=== PATIENT | male | born 1995 | race Caucasian/White ===

== ENCOUNTER 2016-09-27 16:13 | Emergency (ER) | payer BC ==
[2016-09-27 16:30] VITALS: BP 133/69
[2016-09-27] MEDS ORDERED: Cyclobenzaprine 10 MG Tab PO ONE ×2 (16:50→17:33)
[2016-09-27] MEDS ORDERED: Ketorolac 30 MG/ML SDV ONE (16:50)
[2016-09-27] MEDS ORDERED: Ketorolac 30 MG/ML SDV IM ONE (17:00)
--- NOTE | 2016-09-27 17:01 | EDM.PDOC ---
Addendum entered and electronically signed by Madan Doss PA-C 09/27/16 17: 47: X-rays cervical spine 2 views Impression: No fracture identified. Minimal anterior positioning of C4 on C5. X-rays thoracic spine 2 views Impression: No fracture or subluxation. No acute plain film abnormality Original Note: ED UPPER BACK/NECK PAIN/INJURY - General Chief Complaint: Back Pain or Injury Stated Complaint: UPPER BACK PAIN Time Seen by Provider: 09/27/16 16:40 Source of Information: Reports: Patient History Limitations: Reports: No limitations - History of Present Illness INITIAL COMMENTS - FREE TEXT/NARRATIVE: 21-year-old male presents to the emergency room with complaints of upper back pain, left scapular pain. He reports no injury or trauma. Symptoms are present when he woke up this morning approximately 8:00. He denies any pain radiating down his arms no numbness or tingling. He denies pain in his neck but has increased pain and discomfort in his upper back with any neck range of motion. He has not taken anything for it. 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 [No Known Home Meds] 09/27/16 [History] Past Medical History HEENT History: Reports: Impaired vision Respiratory History: Reports: Bronchitis, recurrent Gastrointestinal History: Reports: None Musculoskeletal History: Reports: Fracture Neurological History: Reports: None Psychiatric History: Reports: ADD, Anxiety, OCD Endocrine/Metabolic History: Reports: None Hematologic History: Reports: None Immunologic History: Reports: None Oncologic (Cancer) History: Reports: None Dermatologic History: Reports: Other (see below) Other Dermatologic History: dermatitis - Infectious Disease History Infectious Disease History: Reports: Influenza, Mononucleosis - Past Surgical History GI Surgical History: Reports: None Endocrine Surgical History: Reports: None Neurological Surgical History: Reports: None Musculoskeletal Surgical History: Reports: None Dermatological Surgical History: Reports: None Social & Family History - Tobacco Use Smoking Status *Q: Current Every Day Smoker Years of Tobacco use: 6 Packs/Tins Daily: 1 Used Tobacco, but Quit: No Second Hand Smoke Exposure: Yes - Caffeine Use Caffeine Use: Reports: Coffee, Energy drinks, Soda, Tea - Recreational Drug Use Recreational Drug Use: No ED ROS GENERAL - Review of Systems Review Of Systems: ROS reveals no pertinent complaints other than HPI. ED EXAM, UPPER BACK/NECK PAIN - Physical Exam Exam: See Below Exam Limited By: No limitations General Appearance: alert, no apparent distress, thin Head Exam: atraumatic, normocephalic Neck Exam: non-tender, full range of motion, normal alignment, normal inspection Nexus Criteria: No: posterior, midline cervical tenderness, evidence of intoxication, altered level of consciousness, focal neurological deficit, painful distracting injuries Cardiovascular/Respiratory: regular rate, rhythm Back Exam: normal inspection, paraspinal tenderness (left upper back paraspinals , rhomboids). 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 No: sensory deficit, depressed affect DTR: 2+: bicep (R), bicep (L), tricep (R), tricep (L) Psychiatric: normal affect, normal mood Skin Exam: Normal color, Warm/dry Lymphatic: no adenopathy (cervical) Course - Vital Signs Last Recorded V/S: Last Vital Signs Temp 99.0 F 09/27/16 16:25 Pulse 74 09/27/16 16:25 Resp 22 H 09/27/16 16:25 BP 133/69 09/27/16 16:25 Pulse Ox 96 09/27/16 16:25 - Orders/Labs/Meds Orders: Active Orders 24 hr Category Date Time Status Cervical Spine 2V or 3V [CR] Stat Exams 09/27/16 16:51 Ordered Thoracic Spine 2V [CR] Stat Exams 09/27/16 16:52 Ordered Meds: Medications Discontinued Medications Generic Name Dose Route Start Last Admin Trade Name Sabas PRN Reason Stop Dose Admin Cyclobenzaprine HCl 10 mg 09/27/16 16:50 09/27/16 17:06 Flexeril PO 09/27/16 16:51 10 mg ONETIME ONE Administration Ketorolac Tromethamine 30 mg 09/27/16 16:50 Toradol .ROUTE 09/27/16 16:51 .STK-MED ONE Ketorolac Tromethamine 30 mg 09/27/16 17:00 09/27/16 17:05 Toradol IM 09/27/16 17:01 30 mg ONETIME ONE Administration Tramadol HCl 100 mg 09/27/16 17:30 Ultram PO 09/27/16 17:31 ONETIME ONE Departure - Departure Time of Disposition: 17:36 Disposition: Home, Self-Care 01 Condition: good Clinical Impression: Acute upper back pain, Muscle weakness of left arm Instructions: Muscle Strain, [id number], Back Pain, Adult, [id number] Referrals: PCP,None [Primary Care Provider] - Forms: ED Department Discharge - My Orders Last 24 Hours: My Active Orders 09/27/16 16:51 Cervical Spine 2V or 3V [CR] Stat 09/27/16 16:52 Thoracic Spine 2V [CR] Stat - Assessment/Plan Last 24 Hours: My Active Orders 09/27/16 16:51 Cervical Spine 2V or 3V [CR] Stat 09/27/16 16:52 Thoracic Spine 2V [CR] Stat Assessment:: Acute upper back pain, myofascial Left arm weakness, triceps Plan: 1. Toradol 10 mg one by mouth every 8 hours when necessary for acute pain. 2. Flexeril 10 mg one by mouth every 8 hours for muscle spasm. 3. Ultram 50 mg one by mouth q. 6 hours when necessary for pain. 4. Off work today from [employer]. 5. Followup with primary care if symptoms do not improve.
[2016-09-27] MEDS ORDERED: traMADol 50 MG Tab PO ONE ×2 (17:30→17:33)
[2016-09-27] MEDS ORDERED: Ketorolac 10 MG Tab PO ONE (17:33)
== END 2016-09-27 17:55 | disposition home or self-care (01) ==
LOC: KA.ED 16:13
DX: M54.6 Pain in thoracic spine (principal); M62.81 Muscle weakness (generalized); F41.9 Anxiety disorder, unspecified; F17.210 Nicotine dependence, cigarettes, uncomplicated; Z88.0 Allergy status to penicillin
CPT/HCPCS: 72040; 72070; 96372; 99283; A9270; J1885

== ENCOUNTER 2017-03-08 23:18 | Emergency (ER) | payer BC ==
[2017-03-08 23:36] VITALS: BP 106/52
--- NOTE | 2017-03-08 23:46 | EDM.PDOC ---
ED HPI GENERAL MEDICAL PROBLEM - General Chief Complaint: General Stated Complaint: feels sick Time Seen by Provider: 03/08/17 23:35 Source of Information: Reports: Patient History Limitations: Reports: No Limitations - History of Present Illness INITIAL COMMENTS - FREE TEXT/NARRATIVE: 22 YO WM presents to ER with nonproductive cough, congestion, body aches and nausea x 2 days. Pt reports subjective fevers and sick contacts at home (mom) who is also being treated tonight in ER. Pt denies any shortness of breath or chest pain. Pt requesting a work note for his illness tonight. Onset Date: 03/07/17 Duration: Day(s): (2) Location: Reports: Generalized Quality: Reports: Ache Severity: Mild Improves with: Reports: None Worsens with: Reports: None Associated Symptoms: Reports: Fever/Chills, Malaise, Nausea/Vomiting. Denies: Chest Pain, Shortness of Breath Generalized Pain Score (Numeric/FACES): 6 - Related Data Allergies Allergy/AdvReac Type Severity Reaction Status Date / Time Penicillins Allergy Cannot Verified 03/08/17 23:36 Remember shellfish derived Allergy Anaphylactic Verified 03/08/17 23:36 Shock Home Meds: Home Meds D-Methorphan/PE/Acetaminophen [Tylenol Cold Multi-Symp Caplet] 1 tab PO Q6HR PRN 03/08/17 [History] Cetirizine [ZyrTEC] 10 mg PO DAILY #30 tablet 03/09/17 [Rx] Ibuprofen [Motrin] 600 mg PO Q6H #20 tablet 03/09/17 [Rx] Ondansetron [Zofran ODT] 4 mg PO Q6H PRN #10 tab.dis 03/09/17 [Rx] Past Medical History HEENT History: Reports: Impaired Vision Respiratory History: Reports: Bronchitis, Recurrent Gastrointestinal History: Reports: None Musculoskeletal History: Reports: Fracture Neurological History: Reports: None Psychiatric History: Reports: ADD, Anxiety, OCD Endocrine/Metabolic History: Reports: None Hematologic History: Reports: None Immunologic History: Reports: None Oncologic (Cancer) History: Reports: None Dermatologic History: Reports: Other (See Below) Other Dermatologic History: dermatitis - Infectious Disease History Infectious Disease History: Reports: Influenza, Mononucleosis - Past Surgical History GI Surgical History: Reports: None Endocrine Surgical History: Reports: None Neurological Surgical History: Reports: None Musculoskeletal Surgical History: Reports: None Dermatological Surgical History: Reports: None Social & Family History - Tobacco Use Smoking Status *Q: Current Every Day Smoker Years of Tobacco use: 6 Packs/Tins Daily: 1 Used Tobacco, but Quit: No Second Hand Smoke Exposure: Yes - Caffeine Use Caffeine Use: Reports: Coffee, Energy Drinks, Soda, Tea - Recreational Drug Use Recreational Drug Use: No ED ROS GENERAL - Review of Systems Review Of Systems: See Below Constitutional: Reports: Fever, Chills, Malaise HEENT: Reports: Rhinitis Respiratory: Reports: No Symptoms Cardiovascular: Reports: No Symptoms Endocrine: Reports: No Symptoms GI/Abdominal: Reports: No Symptoms : Reports: No Symptoms Musculoskeletal: Reports: No Symptoms Skin: Reports: No Symptoms Neurological: Reports: No Symptoms Psychiatric: Reports: No Symptoms Hematologic/Lymphatic: Reports: No Symptoms Immunologic: Reports: No Symptoms ED EXAM, GENERAL - Physical Exam Exam: See Below Exam Limited By: No Limitations General Appearance: Alert, WD/WN, No Apparent Distress Ears: Normal External Exam, Normal Canal, Hearing Grossly Normal, Normal TMs Ear Exam: Bilateral Ear: Auricle Normal, Canal Normal, TM normal Nose: Normal Inspection, Normal Mucosa, No Blood Throat/Mouth: Normal Inspection, Normal Lips, Normal Teeth, Normal Gums, Normal Oropharynx, Normal Voice, No Airway Compromise Head: Atraumatic, Normocephalic Neck: Normal Inspection, Supple, Non-Tender, Full Range of Motion Respiratory/Chest: No Respiratory Distress, Lungs Clear, Normal Breath Sounds, No Accessory Muscle Use, Chest Non-Tender Cardiovascular: Normal Peripheral Pulses, Regular Rate, Rhythm, No Edema, No Gallop, No JVD, No Murmur, No Rub GI/Abdominal: Normal Bowel Sounds, Soft, Non-Tender, No Organomegaly, No Distention, No Abnormal Bruit, No Mass Back Exam: Normal Inspection, Full Range of Motion, NT Extremities: Normal Inspection, Normal Range of Motion, Non-Tender, Normal Capillary Refill, No Pedal Edema Neurological: Alert, Oriented, CN II-XII Intact, Normal Cognition, Normal Gait, Normal Reflexes, No Motor/Sensory Deficits Psychiatric: Normal Affect, Normal Mood Skin Exam: Warm, Dry, Intact, Normal Color, No Rash Lymphatic: No Adenopathy Course - Vital Signs Last Recorded V/S: Last Vital Signs Temp 36.8 C 03/08/17 23:32 Pulse 80 03/08/17 23:32 Resp 16 03/08/17 23:32 BP 106/52 L 03/08/17 23:32 Pulse Ox 95 03/08/17 23:32 Departure - Departure Time of Disposition: 00:20 Disposition: Home, Self-Care 01 Condition: Good Clinical Impression: Viral upper respiratory infection - Discharge Information Prescriptions: Cetirizine [ZyrTEC] 10 mg PO DAILY #30 tablet Ibuprofen [Motrin] 600 mg PO Q6H #20 tablet Ondansetron [Zofran ODT] 4 mg PO Q6H PRN #10 tab.dis PRN Reason: Vomiting Instructions: Upper Respiratory Infection, Adult, [id number] Referrals: Osman Farmer MD [Physician] - Forms: ED Department Discharge - Assessment/Plan Assessment:: 1. viral URI Plan: 1. discharge home 2. motrin/tylenol for fever/body aches 3. zyrtec 10mg PO QD 4. benadryl 50mg PO Q6 PRN 5. zofran ODT 4mg SL Q6 PRN 5. follow up at [facility] for recheck in 2 days 6. return to ER for worsening symptoms
[2017-03-09] MEDS ORDERED: Ondansetron 4 MG Tab.DIS ONE (00:16)
[2017-03-09] MEDS ORDERED: Ondansetron 4 MG Tab.DIS PO SCH (00:16)
== END 2017-03-09 00:30 | disposition home or self-care (01) ==
LOC: KA.ED 23:18
DX: J06.9 Acute upper respiratory infection, unspecified (principal); F17.210 Nicotine dependence, cigarettes, uncomplicated; Z88.0 Allergy status to penicillin; Z91.013 Allergy to seafood
CPT/HCPCS: 99282; A9270

== ENCOUNTER 2017-03-23 08:12 | Inpatient (IN) | payer BC ==
[2017-03-23] MEDS ORDERED: HYDROmorphone 1 MG/ML Syringe IVPUSH ONE ×2 (08:52→09:58)
[2017-03-23] MEDS ORDERED: Ondansetron 4 MG/2 ML SDV IVPUSH ONE (08:52)
--- NOTE | 2017-03-23 08:59 | EDM.PDOC ---
ED HPI GENERAL MEDICAL PROBLEM - General Chief Complaint: Abdominal Pain Stated Complaint: abd pain Time Seen by Provider: 03/23/17 08:51 Source of Information: Reports: Patient History Limitations: Reports: No Limitations - History of Present Illness INITIAL COMMENTS - FREE TEXT/NARRATIVE: Patient is a 22-year-old male who presents to the ER this morning for complaint of abdominal pain 1 day. States he has felt feverish and pain is progressively worsening. Has had diarrhea but denies nausea and vomiting, testicular pain, flank pain, or dysuria.. No family members with similar symptoms. Patient has no history of abdominal surgery or out of country travel. Onset: Gradual Onset Date: 03/22/17 Duration: Day(s): Location: Reports: Abdomen Quality: Reports: Ache Severity: Moderate Improves with: Reports: None Worsens with: Reports: None Associated Symptoms: Reports: Fever/Chills, Other (diarrhea). Denies: Nausea/ Vomiting Treatments MANAGER ICU: Reports: NSAIDS Abdomen Pain Score (Numeric/FACES): 7 - Related Data Allergies Allergy/AdvReac Type Severity Reaction Status Date / Time Penicillins Allergy Cannot Verified 03/23/17 08:28 Remember shellfish derived Allergy Anaphylactic Verified 03/23/17 08:28 Shock Home Meds: Home Meds D-Methorphan/PE/Acetaminophen [Tylenol Cold Multi-Symp Caplet] 1 tab PO Q6HR PRN 03/08/17 [History] Ibuprofen [Motrin] 600 mg PO Q6H #20 tablet 03/09/17 [Rx] Past Medical History HEENT History: Reports: Impaired Vision Respiratory History: Reports: Bronchitis, Recurrent Gastrointestinal History: Reports: None Musculoskeletal History: Reports: Fracture Neurological History: Reports: None Psychiatric History: Reports: ADD, Anxiety, OCD Endocrine/Metabolic History: Reports: None Hematologic History: Reports: None Immunologic History: Reports: None Oncologic (Cancer) History: Reports: None Dermatologic History: Reports: Other (See Below) Other Dermatologic History: dermatitis - Infectious Disease History Infectious Disease History: Reports: Influenza, Mononucleosis - Past Surgical History GI Surgical History: Reports: None Endocrine Surgical History: Reports: None Neurological Surgical History: Reports: None Musculoskeletal Surgical History: Reports: None Dermatological Surgical History: Reports: None Social & Family History - Tobacco Use Smoking Status *Q: Current Some Day Smoker Years of Tobacco use: 5 Packs/Tins Daily: 0.5 Used Tobacco, but Quit: No Second Hand Smoke Exposure: Yes - Caffeine Use Caffeine Use: Reports: Coffee, Energy Drinks, Soda - Alcohol Use Days Per Week of Alcohol Use: 1 Number of Drinks Per Day: 4 Total Drinks Per Week: 4 - Recreational Drug Use Recreational Drug Use: No ED ROS GENERAL - Review of Systems Review Of Systems: ROS reveals no pertinent complaints other than HPI. Constitutional: Reports: Fever, Chills, Decreased Appetite HEENT: Reports: No Symptoms Respiratory: Reports: No Symptoms Cardiovascular: Reports: No Symptoms Endocrine: Reports: No Symptoms GI/Abdominal: Reports: Abdominal Pain, Diarrhea. Denies: Black Stool, Bloody Stool, Constipation, Nausea, Vomiting : Reports: No Symptoms Musculoskeletal: Reports: No Symptoms Skin: Reports: No Symptoms Neurological: Reports: No Symptoms Psychiatric: Reports: No Symptoms Hematologic/Lymphatic: Reports: No Symptoms Immunologic: Reports: No Symptoms ED EXAM, GI/ABD - Physical Exam Exam: See Below Exam Limited By: No Limitations General Appearance: Alert, WD/WN, Mild Distress Nose: Normal Inspection, Normal Mucosa, No Blood Throat/Mouth: Normal Inspection, Normal Oropharynx, No Airway Compromise Head: Atraumatic, Normocephalic Neck: Normal Inspection, Supple Respiratory/Chest: No Respiratory Distress, Lungs Clear, Normal Breath Sounds, No Accessory Muscle Use, Chest Non-Tender Cardiovascular: Regular Rate, Rhythm, No Murmur GI/Abdominal Exam: Soft, No Organomegaly, No Distention, No Abnormal Bruit, Tender (RLQ) (Male) Exam: No Hernia, Normal Inspection Back Exam: Normal Inspection. No: CVA Tenderness (L), CVA Tenderness (R) Extremities: Normal Inspection Neurological: Alert, Oriented, Normal Cognition Psychiatric: Normal Affect, Normal Mood Skin Exam: Warm, Dry, Intact, Normal Color, No Rash Lymphatic: No Adenopathy Course - Vital Signs Last Recorded V/S: Last Vital Signs Temp 100.3 F 03/23/17 08:45 Pulse 76 03/23/17 08:24 Resp 16 03/23/17 08:24 BP 131/66 03/23/17 08:24 Pulse Ox 100 03/23/17 08:24 - Orders/Labs/Meds Orders: Active Orders 24 hr Category Date Time Status Abdomen Pelvis w Cont [CT] Stat Exams 03/23/17 08:52 Ordered CULTURE BLOOD [BC] Stat Lab 03/23/17 10:52 Ordered CULTURE BLOOD [BC] Stat Lab 03/23/17 10:52 Ordered Sodium Chloride 0.9% [Normal Saline] Med 03/23/17 09:15 Active 50 ml FLUSH ASDIRECTED Blood Culture x2 Reflex Set [OM.PC] Stat Oth 03/23/17 10:51 Ordered Medication Orders Sodium Chloride (Normal Saline) 50 ml FLUSH ASDIRECTED KRYS Last Admin: 03/23/17 09:55 Dose: 50 ml Labs: Laboratory Tests 03/23/17 03/23/17 03/23/17 Range/Units 08:35 08:40 08:40 WBC 16.7 H (5.0-10.0) 10^3/uL RBC 4.64 (4.50-6.00) 10^6/uL Hgb 13.8 (13.0-17.0) g/dL Hct 42.7 (40.0-52.0) % MCV 91.8 (82.0-92.0) fL MCH 29.7 (27.0-31.0) pg MCHC 32.4 (32.0-36.0) g/dL RDW 12.0 (11.5-14.5) % Plt Count 239 (150-300) 10^3/uL MPV 8.1 (7.4-10.4) fL Neut % (Auto) 81.9 H (50.0-70.0) % Lymph % (Auto) 9.9 L (20.0-40.0) % [place] % (Auto) 7.1 (2.0-8.0) % Eos % (Auto) 1.0 (1.0-3.0) % Baso % (Auto) 0.1 (0.0-1.0) % Neut # (Auto) 13.6 H (2.5-7.0) 10^3/uL Lymph # (Auto) 1.7 (1.0-4.0) 10^3/uL [place] # (Auto) 1.2 H (0.1-0.8) 10^3/uL Eos # (Auto) 0.2 (0.1-0.3) 10^3/uL Baso # (Auto) 0.0 (0.0-0.1) 10^3/uL Sodium 140 (136-145) mmol/L Potassium 3.4 (3.3-5.3) mmol/L Chloride 104 (98-115) mmol/L Carbon Dioxide 26.7 (21.0-32.0) mmol/L BUN 15 (6-25) mg/dL Creatinine 0.64 (0.51-1.17) mg/dL Est Cr Clr Drug Dosing 171.28 mL/min Estimated GFR (MDRD) > 60 mL/min Glucose 95 (70-110) mg/dL Calcium 8.7 (8.7-10.3) mg/dL Total Bilirubin 0.2 (0.2-1.0) mg/dL AST 23 (15-37) U/L ALT 25 (12-78) U/L Alkaline Phosphatase 73 (46-116) IU/L Total Protein 7.3 (6.4-8.2) g/dL Albumin 3.60 (3.00-4.80) g/dL Lipase 118 (73-393) U/L Specimen Type Urincc Urine Color Yellow (YELLOW) Urine Appearance Clear (CLEAR) Urine pH 8.0 (5.0-9.0) Ur Specific [place] 1.015 (1.005-1.030) Urine Protein Negative (NEGATIVE) mg/dL Urine Glucose (UA) Negative (NEGATIVE) mg/dL Urine Ketones Negative (NEGATIVE) mg/dL Urine Occult Blood Negative (NEGATIVE) Urine Nitrite Negative (NEGATIVE) Urine Bilirubin Negative (NEGATIVE) Urine Urobilinogen 0.2 (0.2-1.0) E.U./dL Ur Leukocyte Esterase Negative (NEGATIVE) Urine RBC 5-10 H /HPF Urine WBC 0-5 /HPF Ur Epithelial Cells Rare /LPF Urine Bacteria Rare (NONE TO FEW) /HPF Meds: Medications Generic Name Dose Route Start Last Admin Trade Name Freq PRN Reason Stop Dose Admin Sodium Chloride 50 ml 03/23/17 09:15 03/23/17 09:55 Normal Saline FLUSH 50 ml ASDIRECTED KRYS Administration Discontinued Medications Generic Name Dose Route Start Last Admin Trade Name Freq PRN Reason Stop Dose Admin Diphenhydramine HCl 25 mg 03/23/17 09:58 03/23/17 10:11 Benadryl IVPUSH 03/23/17 09:59 25 mg ONETIME ONE Administration Hydromorphone HCl 0.5 mg 03/23/17 08:52 03/23/17 09:09 Dilaudid IVPUSH 03/23/17 08:53 0.5 mg ONETIME ONE Administration Hydromorphone HCl 0.5 mg 03/23/17 09:58 03/23/17 10:10 Dilaudid IVPUSH 03/23/17 09:59 0.5 mg ONETIME ONE Administration Iopamidol 75 ml 03/23/17 09:10 03/23/17 09:55 Isovue-300 (61%) IV 03/23/17 09:11 75 ml ONETIME ONE Administration Ondansetron HCl 4 mg 03/23/17 08:52 03/23/17 09:08 Zofran IVPUSH 03/23/17 08:53 4 mg ONETIME ONE Administration - Radiology Interpretation Free Text/Narrative:: Discussed case with radiologist and was advised. CT showed colitis with inflammation around appendix, but does not feel acute appendicitis at this time. - Re-Assessments/Exams Free Text/Narrative Re-Assessment/Exam: 03/23/17 11:14 Patient afebrile, nontoxic appearing. Vital signs stable. Pain controlled. Discussed case with Dr. Perez. Advised to admit inpatient and he will follow. Departure - Departure Time of Disposition: 11:18 Disposition: Admitted As Inpatient 64 Condition: Fair Clinical Impression: Colitis Abdominal pain Qualifiers: Abdominal location: right lower quadrant Qualified Code(s): R10.31 - Right lower quadrant pain - Discharge Information Referrals: PCP,None [Primary Care Provider] - Forms: ED Department Discharge - My Orders Last 24 Hours: My Active Orders 03/23/17 08:52 Abdomen Pelvis w Cont [CT] Stat 03/23/17 09:15 Sodium Chloride 0.9% [Normal Saline] 50 ml FLUSH ASDIRECTED 03/23/17 10:51 Blood Culture x2 Reflex Set [OM.PC] Stat 03/23/17 10:52 CULTURE BLOOD [BC] Stat CULTURE BLOOD [BC] Stat - Assessment/Plan Last 24 Hours: My Active Orders 03/23/17 08:52 Abdomen Pelvis w Cont [CT] Stat 03/23/17 09:15 Sodium Chloride 0.9% [Normal Saline] 50 ml FLUSH ASDIRECTED 03/23/17 10:51 Blood Culture x2 Reflex Set [OM.PC] Stat 03/23/17 10:52 CULTURE BLOOD [BC] Stat CULTURE BLOOD [BC] Stat Assessment:: COLITIS Plan: ADMIT INPATIENT TO DR PEREZ
[2017-03-23] MEDS ORDERED: Iopamidol 612 MG/ML 75 ML Bottle IV ONE (09:10)
[2017-03-23 09:12] LABS: CHLORIDE,CL 104 mmol/L (98-115); SODIUM,NA 140 mmol/L (136-145)
[2017-03-23] MEDS ORDERED: Sodium Chloride 0.9% 50 ML SDV FLUSH SCH (09:15)
[2017-03-23] MEDS ORDERED: diphenhydrAMINE 50 MG/ML SDV IVPUSH ONE (09:58)
[2017-03-23] MEDS ORDERED: metroNIDAZOLE/Normal Saline 500 MG in Premix Bag 1 BAG IV ONE (11:15)
[2017-03-23] MEDS ORDERED: Ciprofloxacin in D5W 400 MG in Premix Bag 1 BAG IV ONE ×2 (11:15)
[2017-03-23] MEDS: Sodium Chloride 0.9% 250 ML IV SCH (12:03)
[2017-03-23] MEDS ORDERED: [UNRECOGNIZED DRUG - OTHER] PO PRN (12:56)
[2017-03-23] MEDS ORDERED: ACETAMINOPHEN PO PRN (12:56)
[2017-03-23] MEDS ORDERED: D METHORPHAN PO PRN (12:56)
[2017-03-23] MEDS ORDERED: HYDROmorphone 1 MG/ML Syringe IVPUSH PRN (13:00)
[2017-03-23] MEDS ORDERED: Nicotine 21 MG/24 Hr Patch TOP SCH (13:30)
[2017-03-23] MEDS ORDERED: Nicotine 7 MG/24 Hr Patch TOP SCH (13:30)
[2017-03-23] MEDS: Ibuprofen 600 MG Tab PO SCH ×2 (13:30→18:24)
[2017-03-23] MEDS: Ciprofloxacin in D5W 200 ML IV SCH ×2 (13:31→21:14)
[2017-03-23] MEDS: metroNIDAZOLE/Normal Saline 100 ML IV SCH (19:56)
[2017-03-24] MEDS: Ibuprofen 600 MG Tab PO SCH ×2 (00:31→06:20)
--- NOTE | 2017-03-24 00:50 | HP ---
PATIENT PROFILE: The patient is a 22-year-old patient from [place], [place]. HISTORY OF PRESENT ILLNESS: This 22-year-old patient presented to the emergency room at about 8:00 a.m. this morning because of pain in his abdomen, particularly the right lower quadrant region. The pain started the day before at around noontime. The pain has steadily gotten worse. The patient was able to work through the night. He does work at a factory in [place], [place]. He had been taking Motrin and that helped his pain. He worked through the night. The morning, the pain had gotten worse and therefore, he presented himself to the emergency room. He complained of no nausea or vomiting. No diarrhea. No fever. No urinary tract problems. No coughing. No joint pains. No skin rash. Past history of the patient includes no major medical or surgical problems. PAST MEDICAL HISTORY: Includes history of bronchitis, recurrent. ENT: No complaints except for slightly decreased vision. GI: Nil. MUSCULOSKELETAL: She has had a fracture of the right upper extremity. NEUROLOGIC: No complaints. PSYCHIATRIC: Has history of ADD, anxiety, and OCD. ENDOCRINE: Nil. HEMATOLOGICAL: Nil. IMMUNOLOGICAL: Nil. CANCER: Nil. DERMATOLOGICAL: Nil. INFECTIOUS: The patient has had history of influenza and mononucleosis. PAST SURGICAL HISTORY: Nil. SOCIAL AND FAMILY HISTORY: The patient does smoke two to three cigarettes every day. This he has cut down from 1.5 packs everyday. Recreational drug use, nil. ALLERGIES: He is allergic to penicillin and shellfish. SOCIAL AND FAMILY HISTORY: The patient used to be a heavy smoker up to 1.5 packs everyday, but for the last few days, he has cut it down to two to three cigarettes a day. Caffeine reports coffee and energy drinks and soda. REVIEW OF SYSTEMS: HEAD: No complaints. EYES: No complaints. EARS, NOSE, AND THROAT: No complaints. NECK: No complaints. LUNGS: No complaints. HEART: No complaints. ABDOMEN: See present history. EXTREMITIES: No complaints. NEUROLOGICAL: No complaints. LYMPHATIC SYSTEM: No complaints. HEMATOLOGIC: No complaints. PSYCHIATRIC: No complaints. IMMUNOLOGICAL: No complaints. PHYSICAL EXAMINATION: GENERAL: Reveals a pleasant gentleman in no immediate distress. This examination is performed at about 5:15. He is alert and well oriented to space, time, and person. VITAL SIGNS: Temperature is 100.3, pulse 76, respirations 16, blood pressure 136/66, and oxygen saturation is 100. HEAD: Negative. ENT: Negative. HEART: Stable. LUNGS: Stable. ABDOMEN: Soft. There is some tenderness in the right lower quadrant region. There is localized peritonitis present. No rebound or rigidity. Liver and spleen are not palpable. No other organs are enlarged. Bowel tones are normal. Femoral pulses are good. EXTREMITIES: Normal. NEUROLOGIC: Intact. LABORATORY DATA: His WBC is 6.7, hemoglobin is 13.8. Neutrophil count was 81.9%, lymphocytes 9.9%, monos 7.1%, eosinophil 1%. Sodium was 140, potassium was 3.4, chloride 104. Rest of the panel 14 is normal. Urinalysis revealed a specific gravity of 1.015, negative for glucose or blood. CAT scan was performed and this was discussed with the radiologist by the emergency room PA. Apparently, the CT shows colitis with inflammation around the appendix, but does not feel acute appendicitis at the time. PLAN: Plan will be to admit this patient to the hospital and continue him with antibiotics. He can have clear liquids. IV fluids. Tylenol and Motrin for pain control as well as IV Dilaudid also. We will re-evaluate him in the morning. See how he does. If the pain resolves, then he may be able to go home. If it is still persistent and localizes to the right lower quadrant with more rigidity or more evidence of peritonitis, he may very well have appendicitis. /[id number]/MODL
[2017-03-24] MEDS: metroNIDAZOLE/Normal Saline 100 ML IV SCH ×2 (04:01→11:35)
[2017-03-24 06:25] VITALS: BP 112/58
[2017-03-24] MEDS: Ciprofloxacin in D5W 200 ML IV SCH (08:54)
[2017-03-24] MEDS ORDERED: Nicotine 21 MG/24 Hr Patch TOP SCH (09:00)
[2017-03-24] MEDS: Sodium Chloride 0.9% 250 ML IV SCH (11:36)
[2017-03-24] MEDS ORDERED: Bisacodyl 5 MG Tab PO ONE (12:00)
--- NOTE | 2017-03-25 10:23 | PCM.DCSUM1 ---
Discharge Summary - Hospital Course Brief History: This 22-year-old gentleman was admitted through the ED due to abdominal pain. He was particularly complaining of right lower quadrant abdominal pain which started the day prior he was admitted. He had been taken Motrin that did help with this pain. He did have a white count of 6.7% with a 81% neutrophilia. CAT scan of the abdomen showed colitis with inflammation around his appendix. It was doubtful that he had any acute appendicitis and he responded well with antibiotics. He never became hemodynamically unstable - Discharge Data Discharge Date: 03/24/17 Discharge Disposition: Home, Self-Care 01 Condition: Good - Patient Summary/Data Operative Procedure(s) Performed: No procedures performed inpatient. Patient was discharged to receive an outpatient colonoscopy Complications: No complications Hospital Course: Hospital course went well he was placed on antibiotics and was made nothing by mouth for short time then advanced to clear liquids. His white count decreased. His pain resolved and he was discharged the next day for an outpatient colonoscopy. He was placed on metronidazole along with ciprofloxacin as inpatient. His right lower quadrant abdominal pain was resolved on discharge, he had good bowel tones, lungs were clear heart CV regular rate and rhythm. Afebrile - Patient Instructions Diet, Other: Colonoscopy prep diet Driving: May Drive Today Showering/Bathing: May Shower Notify Provider of: Fever, Increased Pain, Nausea and/or Vomiting Other/Special Instructions: You will be placed on 2 different types of antibiotics, these are ready to be picked up in the [facility]-- they were sent electronically - Discharge Plan Prescriptions/Med Rec: Ciprofloxacin [Ciprofloxacin HCl] 500 mg PO BID #14 tablet Metronidazole [IJD: metroNIDAZOLE] 500 mg PO .EVERY 8 HOURS #21 tab Home Medications: Home Meds D-Methorphan/PE/Acetaminophen [Tylenol Cold Multi-Symp Caplet] 1 tab PO Q6HR PRN 03/08/17 [History] Ibuprofen [Motrin] 600 mg PO Q6H #20 tablet 03/09/17 [Rx] Nicotine [Nicotine Patch] 21 mg TD DAILY 03/23/17 [History] Ciprofloxacin [Ciprofloxacin HCl] 500 mg PO BID #14 tablet 03/24/17 [Rx] Metronidazole [IJD: metroNIDAZOLE] 500 mg PO .EVERY 8 HOURS #21 tab 03/24/17 [Rx ] Referrals: PCP,None [Primary Care Provider] - 03/25/17 10:30 am ([facility]) - Discharge Summary/Plan Comment DC Time >30 min.: No Discharge Summary/Plan Comment: Final diagnosis, colitis, improving on discharge. Rule out appendicitis, unlikely appendicitis Patient was discharged to receive outpatient colonoscopy. His prep started while in hospital. Continue with metronidazole and ciprofloxacin - Patient Data Vitals - Most Recent: Last Vital Signs Temp 98.4 F 03/24/17 11:00 Pulse 65 03/24/17 06:24 Resp 16 03/24/17 06:24 BP 112/58 L 03/24/17 06:24 Pulse Ox 97 03/24/17 11:00 Weight - Most Recent: 130 lb 11.2 oz Med Orders - Current: Current Medications Discontinued Medications Bisacodyl (Dulcolax) 20 mg PO ONETIME ONE Stop: 03/24/17 12:01 Last Admin: 03/24/17 13:11 Dose: 20 mg Diphenhydramine HCl (Benadryl) 25 mg IVPUSH ONETIME ONE Stop: 03/23/17 09:59 Last Admin: 03/23/17 10:11 Dose: 25 mg Hydromorphone HCl (Dilaudid) 0.5 mg IVPUSH ONETIME ONE Stop: 03/23/17 08:53 Last Admin: 03/23/17 09:09 Dose: 0.5 mg Hydromorphone HCl (Dilaudid) 0.5 mg IVPUSH ONETIME ONE Stop: 03/23/17 09:59 Last Admin: 03/23/17 10:10 Dose: 0.5 mg Hydromorphone HCl (Dilaudid) 1 mg IVPUSH Q3H PRN PRN Reason: Abdominal Pain Last Admin: 03/23/17 14:38 Dose: 1 mg Metronidazole 500 mg/ Premix 100 mls @ 100 mls/hr IV ONETIME ONE Stop: 03/23/17 12:14 Last Admin: 03/23/17 12:03 Dose: 100 mls/hr Sodium Chloride (Normal Saline) 250 mls @ 20 mls/hr IV DAILY@1200 KRYS Last Admin: 03/24/17 11:36 Dose: 20 mls/hr Metronidazole (Flagyl 500 Mg In Ns 100 Ml) 100 mls @ 100 mls/hr IV Q8H KRYS Last Admin: 03/24/17 11:35 Dose: 100 mls/hr Ciprofloxacin/Dextrose (Cipro In D5w 400 Mg/200 Ml) 200 mls @ 200 mls/hr IV BID [facility] Last Admin: 03/24/17 08:54 Dose: 200 mls/hr Ibuprofen (Motrin) 600 mg PO Q6H [facility] Last Admin: 03/24/17 06:20 Dose: 600 mg Iopamidol (Isovue-300 (61%)) 75 ml IV ONETIME ONE Stop: 03/23/17 09:11 Last Admin: 03/23/17 09:55 Dose: 75 ml Nicotine (Habitrol) 21 mg TOP DAILY KRYS Nicotine (Habitrol) 21 mg TOP DAILY [facility] Last Admin: 03/23/17 14:16 Dose: Not Given Nicotine (Habitrol) 21 mg TOP DAILY [facility] Last Admin: 03/24/17 08:53 Dose: 21 mg Ondansetron HCl (Zofran) 4 mg IVPUSH ONETIME ONE Stop: 03/23/17 08:53 Last Admin: 03/23/17 09:08 Dose: 4 mg Sodium Chloride (Normal Saline) 50 ml FLUSH ASDIRECTED [facility] Last Admin: 03/23/17 09:55 Dose: 50 ml *Q Meaningful Use (DIS) - VTE *Q VTE Criteria *Q: - Stroke *Q Stroke Criteria *Q: - AMI *Q AMI Criteria *Q:
--- NOTE | 2017-06-03 12:17 | DISCH ---
FINAL DIAGNOSIS: Suspect acute appendicitis. /[id number]/MODL
== END 2017-03-24 13:22 | disposition home or self-care (01) | DRG 249 ==
LOC: KA.ED 08:12 → KA.MS 11:30
PROVIDERS: ADMIT Physician Assistant Surgical; ATTEND Family Medicine
DX: K52.9 Noninfective gastroenteritis and colitis, unspecified (principal); F17.200 Nicotine dependence, unspecified, uncomplicated; Z79.899 Other long term (current) drug therapy; Z88.0 Allergy status to penicillin
CPT/HCPCS: 36415; 74177; 80053; 81001; 83690; 85025; 87040; 96374; 96375; 96376; 99285; A9270-GY; J0744; J1170; J1200; J2405; J7050; Q9967

== ENCOUNTER 2017-11-09 23:48 | Emergency (ER) | payer BC ==
[2017-11-09 23:54] VITALS: BP 109/53
--- NOTE | 2017-11-10 00:36 | EDM.PDOC ---
ED HPI GENERAL MEDICAL PROBLEM - General Chief Complaint: General Stated Complaint: cold symptoms, aches all over Time Seen by Provider: 11/10/17 00:24 Source of Information: Reports: Patient History Limitations: Reports: No Limitations - History of Present Illness INITIAL COMMENTS - FREE TEXT/NARRATIVE: Patient presents with cough and muscle aches in legs that started today when he woke up. No fever. He feels like he should rest. - Related Data Allergies Allergy/AdvReac Type Severity Reaction Status Date / Time Penicillins Allergy Cannot Verified 11/09/17 23:49 Remember shellfish derived Allergy Anaphylactic Verified 11/09/17 23:49 Shock Home Meds: Home Meds . [No Known Home Meds] 11/09/17 [History] Past Medical History HEENT History: Reports: Allergic Rhinitis, Impaired Vision, Other (See Below) Other HEENT History: Patient wears glasses Cardiovascular History: Reports: None Respiratory History: Reports: Bronchitis, Recurrent Gastrointestinal History: Reports: Chronic Constipation, Other (See Below) Other Gastrointestinal History: History of nonspecific colitis by CT scan requiring brief hospitalization on 03/23/17 Genitourinary History: Reports: None Musculoskeletal History: Reports: Arthritis, Back Pain, Chronic, Fracture, Neck Pain, Chronic, Osteoarthritis, Other (See Below) Other Musculoskeletal History: History of nasal fracture in 2012 with patient denying previous right arm fracture despite EMR records Neurological History: Reports: None Psychiatric History: Reports: ADD, Anxiety, Depression, OCD Endocrine/Metabolic History: Reports: None Hematologic History: Reports: None Immunologic History: Reports: None Oncologic (Cancer) History: Reports: None Dermatologic History: Reports: Other (See Below) Other Dermatologic History: Nonspecific dermatiti/dry skin mostly during childhood - Infectious Disease History Infectious Disease History: Reports: Influenza, Mononucleosis - Past Surgical History Head Surgeries/Procedures: Reports: None HEENT Surgical History: Reports: None Cardiovascular Surgical History: Reports: None Respiratory Surgical History: Reports: None GI Surgical History: Reports: Colonoscopy, Other (See Below) Other GI Surgeries/Procedures: Colonoscopy in March 2017 with negative findings per patient Male Surgical History: Reports: None Endocrine Surgical History: Reports: None Neurological Surgical History: Reports: None Musculoskeletal Surgical History: Reports: None Oncologic Surgical History: Reports: None Dermatological Surgical History: Reports: None - Past Imaging History Past Imaging History: Reports: CAT Scan (CT scan of the abdomen and pelvis with contrast on 03/23/17) Social & Family History - Family History Family Medical History: Noncontributory - Tobacco Use Smoking Status *Q: Current Every Day Smoker Years of Tobacco use: 6 Packs/Tins Daily: 1 Second Hand Smoke Exposure: Yes - Caffeine Use Caffeine Use: Reports: Other Other Caffeine Use: rare coffe use - Recreational Drug Use Recreational Drug Use: No - Living Situation & Occupation Living situation: Reports: Single, with Family (Sister) Occupation: Employed ([employer]) ED ROS GENERAL - Review of Systems Review Of Systems: See Below Constitutional: Reports: No Symptoms. Denies: Fever HEENT: Denies: Ear Discharge, Ear Pain, Rhinitis, Throat Pain, Vision Change Respiratory: Reports: Cough. Denies: Shortness of Breath Cardiovascular: Denies: Chest Pain, Syncope GI/Abdominal: Denies: Constipation, Diarrhea, Difficulty Swallowing, Nausea, Vomiting : Denies: Dysuria, Flank Pain Musculoskeletal: Denies: Neck Pain, Shoulder Pain, Back Pain Skin: Denies: Cyanosis, Jaundice, Mottled, Pallor, Diaphoresis Neurological: Denies: Confusion, Dizziness, Seizure, Syncope Psychiatric: Denies: Agitation, Anxiety, Confusion ED EXAM, GENERAL - Physical Exam Exam: See Below Exam Limited By: No Limitations General Appearance: Alert, WD/WN, No Apparent Distress Eye Exam: Bilateral Eye: EOMI, Normal Inspection, PERRL Ears: Normal External Exam, Normal Canal, Hearing Grossly Normal, Normal TMs Nose: Normal Inspection, No Blood Throat/Mouth: Normal Inspection, Normal Lips, Normal Teeth, Normal Gums, Normal Oropharynx, Normal Voice, No Airway Compromise Head: Atraumatic, Normocephalic Neck: Normal Inspection, Supple, Non-Tender, Full Range of Motion. No: Lymphadenopathy (L), Lymphadenopathy (R) Respiratory/Chest: No Respiratory Distress, Lungs Clear, Normal Breath Sounds, No Accessory Muscle Use Cardiovascular: Regular Rate, Rhythm, No Murmur, No Rub GI/Abdominal: Soft, Non-Tender, No Organomegaly, No Distention Back Exam: Normal Inspection, Full Range of Motion. No: CVA Tenderness (L), CVA Tenderness (R) Extremities: Normal Inspection, Normal Range of Motion Neurological: Alert, Oriented, Normal Cognition, No Motor/Sensory Deficits Psychiatric: Normal Affect, Normal Mood Skin Exam: Warm, Dry, Intact, Normal Color, No Rash Lymphatic: No Adenopathy Course - Vital Signs Last Recorded V/S: Last Vital Signs Temp 97.7 F 11/09/17 23:52 Pulse 84 11/09/17 23:52 Resp BP 109/53 L 11/09/17 23:52 Pulse Ox 97 11/09/17 23:52 - Re-Assessments/Exams Free Text/Narrative Re-Assessment/Exam: 11/10/17 00:36 Discussed findings and recommendations with patient. I don't see any reason he shouldn't go to work with no fever and normal clinical findings. Patient discharged to home in stable condition. Departure - Departure Time of Disposition: 00:30 Disposition: Home, Self-Care 01 Condition: Good Clinical Impression: Cough, Muscle ache of extremity - Discharge Information Referrals: PCP,None [Primary Care Provider] - Additional Instructions: 1. Drink 8 cups of water daily. 2. Take Ibuprofen 400 mg three times a day as needed for muscle aches. 3. Follow up with your PCP if worsening or not improving in a week. 4. Okay to go to work.
== END 2017-11-10 00:35 | disposition home or self-care (01) ==
LOC: KA.ED 23:48
DX: M79.1 Myalgia (principal); R05 Cough; F17.210 Nicotine dependence, cigarettes, uncomplicated; Z88.0 Allergy status to penicillin; Z91.013 Allergy to seafood
CPT/HCPCS: 99283

== ENCOUNTER 2022-03-11 14:21 | Emergency (ER) | payer BC ==
[2022-03-11 14:38] VITALS: BP 137/77; PULSE 90
[2022-03-11] MEDS: Ketorolac 60 MG/2 ML SDV IM ONE (15:20)
== END 2022-03-11 15:35 | disposition home or self-care (01) ==
LOC: KA.ED 14:21
DX: M43.6 Torticollis (principal); Z88.0 Allergy status to penicillin; Z91.013 Allergy to seafood
CPT/HCPCS: 72040; 96372; 99283; J1885